=== PATIENT | male | born 1945 | race Caucasian/White ===

== ENCOUNTER 2021-01-11 13:05 | Outpatient (CLI) | payer MEDICARE, OTHER ==
--- NOTE | 2021-01-11 17:42 | Ultrasound Report ---
PROCEDURE: Duplex Ext Veins Right INDICATIONS: RIGHT LOWER LIMB PAIN TECHNIQUE: Real-time imaging, as well as color and pulse Doppler interrogation, were performed of the lower extr emity deep veins from the inguinal ligament to the popliteal fossa. COMPARISON: None. FINDINGS: The deep veins are normally compressible, and free of intraluminal thrombus. Color and pu lse Doppler demonstrate normal phasic intraluminal flow. There is normal augmentation response to di stal compression maneuver. IMPRESSION: No evidence of deep venous thrombosis. Reviewed by: Enrico Mota MD on 01/11/2021 5:41 PM PST Approved by: Enrico Mota MD on 01/11/2021 5:41 PM PST Station ID: [id number]
== END 2021-01-11 13:06 | disposition home or self-care (01) ==
LOC: DI 13:05
PROVIDERS: ATTEND Registered Nurse
DX: M79.604 Pain in right leg (principal)

== ENCOUNTER 2023-10-28 11:21 | Outpatient (CLI) | payer MEDICARE, OTHER ==
--- NOTE | 2023-10-28 14:43 | XRAY Report ---
PROCEDURE: Hand 3+V BL INDICATIONS: DEGENERATIVE JOINT DISEASE OF HAND TECHNIQUE: 3 views of both hands acquired. COMPARISON: None. FINDINGS: Bones: No acute fractures or dislocations. No suspicious bony lesions. Multifocal moderate severe joint space narrowing is seen in the interphalangeal joints of the fingers, most notably at the 2nd proximal interphalangeal joints bilaterally and at the right 3rd interphalangeal joint with remodelin g of the articular surfaces and mild deformity. Moderate to severe degenerative changes are seen at t he 1st carpometacarpal joints bilaterally, worse on the right. No definite osseous erosion. Soft tissues: No suspicious soft tissue calcifications. IMPRESSION: Multifocal moderate and severe degenerative changes bilaterally in a pattern most compatible with ost eoarthrosis. Erosive osteoarthritis is not excluded. Reviewed by: Servando Caldwell MD on 10/28/2023 2:42 PM PDT Approved by: Servando Caldwell MD on 10/28/2023 2:42 PM PDT Station ID: [id number]
== END 2023-10-28 11:22 | disposition home or self-care (01) ==
LOC: DI.S 11:21
PROVIDERS: ATTEND Registered Nurse
DX: M19.041 Primary osteoarthritis, right hand (principal); M19.042 Primary osteoarthritis, left hand; M18.0 Bilateral primary osteoarthritis of first carpometacarpal joints

== ENCOUNTER 2023-11-12 12:50 | Outpatient (CLI) | payer MEDICARE, OTHER ==
--- NOTE | 2023-11-12 17:32 | CT Report ---
PROCEDURE: Upper Extremity RT WO INDICATIONS: BILATERAL OSTEOARTHRITIS TECHNIQUE: Noncontrast 2 mm axial sections were acquired through the elbow joint, with coronal and sagittal refo rmats. For radiation dose reduction, the following was used: automated exposure control, adjustment of mA and/or kV according to patient size. COMPARISON: Bilateral hand x-rays 10/28/2023 FINDINGS: Image quality: Excellent. Bones: No acute fracture or dislocation. No osseous erosions. Joints: Severe joint space narrowing, subchondral cyst formation, and osseous proliferation at the 1s t CMC, 1st IP, and 2nd-5th PIP joints. Mild osteoarthritis of the 2nd-5th DIP joints and intercarpal joints. Slight volar and radial subluxation of the thumb at the CMC joint (07/15). Muscles: Overall muscle bulk is preserved. Tendons: Within the limits of a CT examination, the flexor and extensor tendons are within normal marte its without any significant fluid in the tendon sheaths. Vessels: No aneurysmal dilatation of the radial or ulnar arteries. Other soft tissues: No other acute findings. 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 No osseous erosions. Reviewed by: Jesus Mckay MD on 11/12/2023 5:31 PM PDT Approved by: Jesus Mckay MD on 11/12/2023 5:31 PM PDT Station ID: [id number]
--- NOTE | 2023-11-12 17:41 | CT Report ---
PROCEDURE: Upper Extremity LT WO INDICATIONS: BILATERAL OSTEOARTHRITIS TECHNIQUE: Noncontrast 2 mm axial sections were acquired through the elbow joint, with coronal and sagittal refo rmats. For radiation dose reduction, the following was used: automated exposure control, adjustment of mA and/or kV according to patient size. COMPARISON: Bilateral hand x-ray 10/28/2023 FINDINGS: Image quality: Excellent. Bones: No acute fracture or dislocation. No osseous erosions. Joints: Joint space narrowing, subchondral sclerosis, subchondral cyst formation, and osteophyte form ation at the 1st CMC (mild), 1st IP (moderate), 2nd-5th PIP/DIP joints (moderate), and triscaphe join t (mild). Muscles: Overall muscle bulk is preserved. Tendons: Within the limits of a CT examination, the visualized flexor and extensor tendons are within normal limits without any significant fluid in the tendon sheaths. Vessels: No aneurysmal dilatation of the visualized radial and ulnar arteries. Other soft tissues: No other acute abnormality. IMPRESSION: 1.Moderate osteoarthritis of the 1st IP and 2nd-5th PIP/DIP joints. 2.Mild osteoarthritis of the 1st CMC and triscaphe joints. 3.No osseous erosions to suggest erosive osteoarthritis. Reviewed by: Jesus Mckay MD on 11/12/2023 5:40 PM PDT Approved by: Jesus Mckay MD on 11/12/2023 5:40 PM PDT Station ID: [id number]
== END 2023-11-12 12:51 | disposition home or self-care (01) ==
LOC: DI 12:50
PROVIDERS: ATTEND Registered Nurse
DX: M18.0 Bilateral primary osteoarthritis of first carpometacarpal joints (principal); M19.042 Primary osteoarthritis, left hand; M19.041 Primary osteoarthritis, right hand